=== PATIENT | female | born 1935 | race Caucasian/White ===

== ENCOUNTER 2020-11-01 11:49 | Outpatient (RCR) | payer MEDICARE, OTHER, SELFPAY | END 2020-11-01 23:59 | LOC: IMMUN 11:49 | PROVIDERS: PCP Internal Medicine; Referring Provider Family Medicine; Visit Provider Family Medicine | DX: Z23 Encounter for immunization (principal) | CPT/HCPCS: 0011A; 0012A ==

== ENCOUNTER 2021-11-21 17:05 | Inpatient (IN) | payer MEDICARE, OTHER, SELFPAY ==
[2021-11-21 17:05] VITALS: BP 133/106; PULSE 74; RESP 18; TEMP 35.8; O2SAT 97; BMI 20.5
[2021-11-21 18:39] LABS: Absolute Lymphocyte Count 1.66 X10^3/uL (0.83-4.51); Absolute Neutrophil Count 11.2 X10^3/uL (2.0-7.7); Basophil# 0.06 X10^3/uL; Basophil% 0.4 % (0-1); Eosinophil# 0.02 X10^3/uL; Eosinophils% 0.1 % (0-5); Hematocrit 47.6 % (37-47); Hemoglobin 15.5 g/dL (12.0-15.0); Lymphocyte # 1.66 X10^3/ul (0.83-4.51); Lymphocyte % 11.9 % (19-41); Mean Corp Hgb Conc 32.6 g/dL (32-36); Mean Corpuscular Hgb 27.4 pg (27.0-32.0); Mean Corpuscular Volume 84.2 fL (81-99); Mean Platelet Vol. 11.3 fl (6.2-12.0); Monocyte# 0.97 X10^3/uL; NRBC Flagged by Analyzer 0 % (0-5); Neutrophil # 11.18 X10^3/uL (2.7-7.7); Neutrophil % 80.3 % (47-70); Platelet Count 323 K/mm3 (150-450); RBC Distribution Width SD 45.1 fl (35.1-43.9); Red Blood Count 5.65 M/mm3 (4.2-5.4); White Blood Count 13.9 K/mm3 (4.4-11.0)
[2021-11-21 19:30] LABS: Anion Gap 6 (5-15); BUN 27 mg/dL (7-18); BUN/Creat Ratio 27.7 RATIO (10-20); Calcium,Total 9.9 mg/dL (8.5-10.1); Chloride 95 mmol/L (98-107); Creatinine, Serum 0.97 mg/dL (0.55-1.02); EST Glomerular Filtration Rate 58 mL/min (>60); Est Glom Filt Rate - Afr Amer 70 mL/min (>60); Estimated Creatinine Clearance 35.08 ml/min; Glucose 119 mg/dL (74-106); Potassium 4.6 mmol/L (3.5-5.1); Sodium Level 131 mmol/L (136-145)
[2021-11-21 19:56] LABS: Bacteria 0 SEEN /hpf (None Seen); Red Blood Cells-Urine 0 SEEN /hpf (0-5); Squamous Epithelial Cells - UA 0 SEEN /hpf (5-10)
--- NOTE | 2021-11-21 20:23 | CT_ITS ---
STUDY: CT ABDOMEN AND PELVIS WITH CONTRAST REASON FOR EXAM: Female, 86 years old. abd pain RADIATION DOSAGE (If Supplied By Facility): CTDIvol = ( 11.50 ) mGy, DLP = ( 459.76 ) mGycm TECHNIQUE: Transaxial images were obtained from the dome of the diaphragm to the symphysis pubis without oral contrast. IV 100mL Isovue-300 was administered. Sagittal and coronal images were reconstructed. Individualized dose optimization techniques were used for this CT. COMPARISON: None. FINDINGS: There are chronic interstitial fibrotic changes of the lung bases. Small pericardial effusion is present. A mild amount of abdominal and pelvic ascites is also visualized. Normal liver. Normal gallbladder and extrahepatic biliary system. Normal spleen. Normal pancreas. Normal bilateral adrenal glands. Tiny/small renal cysts are present bilaterally which are benign and do not require an additional imaging. Normal visualized stomach. A 4.20 cm short segment of the proximal ileum in the left mid to lower abdomen demonstrates moderate wall thickening and luminal narrowing, with approximately mildly fluid distended loops of bowel consistent with obstruction, proximal to the zone of transition. The distal half of the ileum up to the ileocolic junction is normal. Mild edema is present throughout the mucosa of the proximal jejunum. Fluid and gaseous distended bowel loops originate in the middle one third jejunal region and continues to the zone of transition in the left mid abdomen. There are multiple colonic diverticula consistent with diverticulosis. Moderate to significant fecal retention noted throughout the colon. Mucosal hyperenhancement is seen in the ascending colon likely due to inflammation. 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 Several additional areas of atherosclerotic calcification and stenosis are present in some of the smaller branches of the SMA near the C-loop of the duodenum. There is non-visualization of the appendix. There is diffuse atherosclerotic calcification of the abdominal aorta, without a demonstrated aneurysm. Normal inferior vena cava. Normal retroperitoneum. Normal urinary bladder. There is absence of the uterus consistent with a prior hysterectomy. Normal abdominal wall. There are diffuse degenerative changes of the visualized lumbar spine. IMPRESSION: Small bowel obstruction 1. A 4.20 cm short segment of the proximal ileum in the left mid to lower abdomen demonstrates moderate wall thickening and luminal narrowing, with approximately mildly fluid distended loops of bowel consistent with obstruction, proximal to the zone of transition. The distal half of the ileum up to the ileocolic junction is normal. Mild edema is present throughout the mucosa of the proximal jejunum. Fluid and gaseous distended bowel loops originate in the middle one third jejunal region and continues to the zone of transition in the left mid abdomen. 2. There are multiple colonic diverticula consistent with diverticulosis. Moderate to significant fecal retention noted throughout the colon. 3. Mucosal hyperenhancement is seen in the ascending colon likely due to inflammation. 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 Several additional areas of atherosclerotic calcification and stenosis are present in some of the smaller branches of the SMA near the C-loop of the duodenum Electronically Signed: Pradip Sanchez MD at 21:42 EST , CT/Abdomen/Pelvis W IV Cont ONLY
--- NOTE | 2021-11-21 20:23 | EKG12_ITS ---
Test Reason : ABD PAIN Blood Pressure : / mmHG Vent. Rate : 084 BPM Atrial Rate : 082 BPM P-R Int : 000 ms QRS Dur : 100 ms QT Int : 394 ms P-R-T Axes : 000 -41 088 degrees QTc Int : 465 ms Atrial fibrillation Left axis deviation Voltage criteria for left ventricular hypertrophy Abnormal ECG Confirmed by DARYL ROSENBERG, HASMUKH ([id number]), fan mail editor LEVON AMAYA ([id number]) on 11/24/2021 12:11:57 PM Referred By: PL Confirmed By:HASMUKH BRITO MD
--- NOTE | 2021-11-21 20:24 | EX.ED.DYSGE1 ---
HPI History of Present Illness Chief Complaint: Abd Pain Informant: patient Narrative Narrative: Patient presents with nausea vomiting abdominal pain. She states the symptoms started yesterday morning. She vomited about 7 times yesterday. It was darker brown but not black. She states that did not look as dark as coffee grounds. She vomited once today and then had dry heaves once. When she did vomit today was clear. She has not seen any blood in the stool. Last bowel movement was about 2 days ago but that is not uncommon for her. She had some pain in the right lower quadrant and her abdomen seem to be very bloated but both of those are getting better. It is still present but much better. She states when she saw her physician this afternoon she was having more pain but it seems to have gotten progressively better. Only abdominal surgery is abdominal hysterectomy in approximately 1986. Nothing seems to make the symptoms specifically better or worse other than time. [facility] Medical History Abdominal pain Hyperlipidemia Hypertension Home Medications apixaban [Eliquis] 2.5 mg PO DAILY 11/21/21 [History Last Taken Unknown] atorvastatin 20 mg PO DAILY 11/21/21 [History Last Taken Unknown] potassium chloride 10 meq PO DAILY 11/21/21 [History Last Taken Unknown] Allergy/AdvReac Type Severity Reaction Status Date / Time No Known Allergies Allergy Verified 11/21/21 17:07 Surgical History History of hysterectomy Hx of shoulder surgery Social History Smoking Status: Never smoker ROS ROS ED Constitutional Constitutional ED: Reports chills and subjective Eyes Eyes: Denies blurry vision ENT ENT ED: Denies rhinorrhea or sore throat Cardiovascular Cardiovascular: Denies chest pain or palpitations Respiratory/Chest Respiratory/Chest: Denies cough or dyspnea Gastrointestinal Gastrointestinal: Reports abdominal pain, nausea and vomiting; Denies constipation, diarrhea or melena Genitourinary Genitourinary ED: Denies dysuria Musculoskeletal Musculoskeletal: Denies arthralgias or myalgias Integumentary Denies rash Neurologic Neurologic: Denies headache(s) Endocrine Endocrinology: Denies polydipsia or polyuria Allergic/Immunologic Allergic/Immunologic ED: Denies mouth swelling or urticaria EXAM Physical Exam Const Vital Signs: 11/21/21 17:05 11/21/21 21:56 Temperature 96.5 F L 97.9 F Temperature Source Rectal Temporal Pulse Rate 74 79 Respiratory Rate 18 16 Blood Pressure 133/106 H 124/69 H Blood Pressure Mean 115 87 Pulse Ox 97 98 Oxygen Delivery Method Room Air Room Air Positive well nourished and well developed General Appearance ED: well developed and NAD HEENT Reports dry mucous membranes Mouth ED: Yes dry mucous membranes Mouth: dry mucous membranes Eyes General Eye ED: Negative for pale conjunctiva or scleral icterus Neck no JVD Chest Wall inspection of chest normal Resp normal respiratory effort and clear to auscultation bilaterally Effort and Inspection: Negative for pain with movement Auscultation: Negative for rales or rhonchi Cardio regular rate and no murmurs Rhythm: abnormal rhythm GI normal to inspection, nondistended, normoactive bowel sounds GI Narrative: Abdomen is soft. It is non to minimally distended. There is minimal if any tenderness right lower quadrant but no rebound or guarding. Palpation: soft Back/Spine no CVA tenderness Extremity normal to inspection General Extremety ED: Negative for tenderness Neuro oriented x3 Sensorium / Orientation: alert Psych mental status grossly normal Skin no rashes or lesions noted and no wounds MDM MDM MDM Narrative Medical decision making narrative: Patient does have slight white count 13.9. Hemoglobin is up a bit but that might be also due to dehydration. Electrolytes show minimal decrease of sodium. BUN to creatinine ratio is high consistent with some dehydration and she is given IV fluids. LFTs show no marked abnormalities. Her nausea is better with Zofran. Urine showed 5-10 white cells but no nitrites. I will send a culture but do not think this is likely the source of her symptoms. Her CT showed thickened area near the ileum. There is a small lumen. There appears to be proximal small bowel distention. 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 I discussed case with the hospitalist. I also then called Dr. Joshi on for surgery. We agreed the patient should come in. By her history her symptoms seem to be improving. However she still has some nausea distention and discomfort even though it is improving. With that in the CT findings she really should not go home. She does not need surgery at this time. She may need consultation with surgery and/or GI. Since the patient's nausea is controlled with Zofran, I will not place an NG at this time. Lab Data Attestation: I reviewed the patient's lab results. Labs: Laboratory Results - last 24 hr 11/21/21 11/21/21 11/21/21 18:30 18:30 18:30 WBC 13.9 H RBC 5.65 H Hgb 15.5 H Hct 47.6 H MCV 84.2 MCH 27.4 MCHC 32.6 RDW Std Deviation 45.1 H RDW Coeff of Darren 15.0 H Plt Count 323 MPV 11.3 Immature Gran % (Auto) 0.300 Neut % (Auto) 80.3 H Lymph % (Auto) 11.9 L [place] % (Auto) 7.0 Eos % (Auto) 0.1 Baso % (Auto) 0.4 Absolute Neuts (auto) 11.2 H Absolute Lymphs (auto) 1.66 Nucleated RBC % 0 Sodium 131 L Potassium 4.6 Chloride 95 L Carbon Dioxide 30.0 Anion Gap 6 BUN 27 H Creatinine 0.97 Estim Creat Clear Calc 35.08 Est GFR (MDRD) Af Amer 70 Est GFR (MDRD) Non-Af 58 L BUN/Creatinine Ratio 27.7 H Glucose 119 H Calcium 9.9 Total Bilirubin 1.00 Direct Bilirubin 0.14 AST 52 H ALT 22 Alkaline Phosphatase 97 Total Protein 7.9 Albumin 3.7 Globulin 4.2 Lipase 33 L Urine Color Urine Clarity Urine pH Ur Specific [place] Urine Protein Urine Glucose (UA) Urine Ketones Urine Occult Blood Urine Nitrite Urine Bilirubin Urine Urobilinogen Ur Leukocyte Esterase Urine RBC Urine WBC Ur Squamous Epith Cells Urine Bacteria Hyaline Casts Urine Mucus 11/21/21 19:50 WBC RBC Hgb Hct MCV MCH MCHC RDW Std Deviation RDW Coeff of Darren Plt Count MPV Immature Gran % (Auto) Neut % (Auto) Lymph % (Auto) [place] % (Auto) Eos % (Auto) Baso % (Auto) Absolute Neuts (auto) Absolute Lymphs (auto) Nucleated RBC % Sodium Potassium Chloride Carbon Dioxide Anion Gap BUN Creatinine Estim Creat Clear Calc Est GFR (MDRD) Af Amer Est GFR (MDRD) Non-Af BUN/Creatinine Ratio Glucose Calcium Total Bilirubin Direct Bilirubin AST ALT Alkaline Phosphatase Total Protein Albumin Globulin Lipase Urine Color Yellow Urine Clarity Clear Urine pH 6.0 Ur Specific [place] 1.020 Urine Protein 30 H Urine Glucose (UA) Normal Urine Ketones 15 H Urine Occult Blood Negative Urine Nitrite Negative Urine Bilirubin Negative Urine Urobilinogen Normal Ur Leukocyte Esterase 100 H Urine RBC 0 SEEN Urine WBC 5-10 SEEN Ur Squamous Epith Cells 0 SEEN Urine Bacteria 0 SEEN Hyaline Casts 0-5 SEEN Urine Mucus 1+ Radiography Diagnostic Testing: Clinical Impression(s) from Imaging Studies Abdomen/Pelvis CT 11/21/21 20:23 EKG Initial EKG: Comments: EKG done for elderly with abdominal pain read by me shows atrial fibrillation with a rate of 84. No ventricular ectopy. No acute ST elevation or depression. QRS duration and QTc normal. Discharge Plan Dx/Rx/DC Orders Clinical Impression: Small bowel obstruction, Nausea & vomiting Disposition Disposition: Acute Care Hospital [facility]
[2021-11-21 20:26] LABS: Color, Urine Yellow (Yellow); Glucose, Dipstick Normal (Normal); Ketone-Dipstick 15 mg/dl (Negative); Leukocyte Esterase-Dipstick 100 /ul (Negative); Nitrite-Dipstick Negative (Negative); Occult Blood-Urine Negative /ul (Negative); Protein-Dipstick 30 mg/dl (Negative); Urine Bilirubin Dipstick Negative (Negative); Urine Clarity Clear (Clear); Urine Urobilinogen Normal (Normal)
[2021-11-21] MEDS: Ondansetron 4 MG/2 ML Vial IV (20:27)
[2021-11-21] MEDS: 0.9% Normal Saline 1,000 ML 1000 ML IV (20:28)
[2021-11-21 20:52] LABS: Mucous, Urine 1+ /hpf (<or=2+); White Blood Cells 5-10 SEEN /hpf (0-5)
[2021-11-21 20:53] LABS: Hyaline Cast 0-5 SEEN /lpf (0-5)
[2021-11-21 21:09] LABS: AST(SGOT) 52 U/L (15-37); Alanine Aminotransfer ALT/SGPT 22 U/L (13-56); Albumin, Serum 3.7 g/dL (3.2-5.0); Alkaline Phosphatase 97 U/L (45-117); Bilirubin, Direct 0.14 mg/dL (0.00-0.30); Globulin 4.2 g/dL (2.2-4.2); Lipase 33 U/L (73-393); Protein, Total 7.9 g/dL (6.4-8.2)
[2021-11-21 21:56] VITALS: BP 124/69; PULSE 79; RESP 16; TEMP 36.6; O2SAT 98
--- NOTE | 2021-11-21 22:38 | PCM.HP.STD ---
HPI - General General Date of Admission: 11/21/21 HPI Narrative ALEXANDER CHIN, is a 86 F with a significant history of former smoker; and atrial fibrillation who presents to the emergency department with right upper quadrant pain that started 2 days before presentation. The pain radiated to her mid abdomen. The pain was severe. She described the pain as sharp. There was no ameliorating or aggravating factor to the pain. Then she developed nausea and vomiting. Initially her vomitus was dark brown. Later on her vomitus was clear. She reports sitophobia. On the day of presentation she went to see her PCP who referred her to the ED. Her pain has improved. Last time she vomited was several hours before presentation. Last time her bowels moved was a day before presentation [facility] Medical History Abdominal pain Hyperlipidemia Hypertension Home Medications apixaban [Eliquis] 2.5 mg PO DAILY 11/21/21 [History Last Taken 11/19/21] atorvastatin 20 mg PO QHS 11/21/21 [History Last Taken 11/19/21] hydrochlorothiazide 12.5 mg PO DAILY 11/21/21 [History Last Taken 11/21/21] metoprolol tartrate 12.5 mg PO DAILY 11/21/21 [History Last Taken 11/21/21] potassium chloride 10 meq PO DAILY 11/21/21 [History Last Taken 11/19/21] Allergy/AdvReac Type Severity Reaction Status Date / Time amoxicillin Allergy Hives Verified 11/21/21 23:35 codeine Allergy Hives Verified 11/21/21 23:35 duloxetine [From Cymbalta] Allergy Hives Verified 11/21/21 23:35 pramipexole Allergy Hives Verified 11/21/21 23:35 Family History Other Breast cancer Cancer Surgical History History of hysterectomy Hx of shoulder surgery Social History Smoking Status: Never smoker ROS ROS Narrative Constitutional: Denies fever, chills, fatigue, anorexia and change in weight Eyes: Denies blurry vision, change in eye color, change in vision, discharge from eye(s), double vision, erythema, eye pain, loss of vision or other HEENT: Denies abnormal hearing, dysphagia, ear pain, epistaxis, headache(s), hearing loss, nasal congestion, nasal discharge, post nasal drip, sinus pressure, sore throat or other Cardiovascular: Denies chest pain or palpitations. Denies dyspnea on exertion, orthopnea and paroxysmal nocturnal dyspnea Respiratory/Chest: Denies cough, excessive phlegm production, shortness of breath with exertion and wheezing Gastrointestinal: Reports abdominal pain, nausea and vomiting. Denies hematemesis or hematochezia. Genitourinary: Denies burning urination, difficulty urinating, dysuria, hematuria, nocturia, urinary frequency, urinary hesitancy, urinary incontinence, urinary urgency or other Musculoskeletal: Denies arthralgias, back pain, joint pain, joint stiffness, joint swelling, myalgias, neck pain or other Neurologic: Denies abnormal gait, abnormal speech, confusion, disequilibrium, dizziness, focal weakness, headache(s), numbness, paresthesias, seizure-like activity, seizures, syncope, tingling, tremor(s) or other Psychiatric: Denies anxiety, depression, homicidal ideation, suicidal ideation or other Endocrinology: Denies change in body appearance, cold intolerance, excessive sweating, heat intolerance, polydipsia, polyuria or other Hematologic/Lymphatic: Denies anemia, easy bleeding, easy bruising, lymphadenopathy or other Integumentary: Denies rashes Allergic/Immunologic: Denies rhinitis, hives, eczema, asthma or other Vital Signs Vital Signs Vital Signs: 11/21/21 17:05 11/21/21 21:56 Temperature 96.5 F L 97.9 F Temperature Source Rectal Temporal Pulse Rate 74 79 Respiratory Rate 18 16 Blood Pressure 133/106 H 124/69 H Blood Pressure Mean 115 87 Pulse Ox 97 98 Oxygen Delivery Method Room Air Room Air Weight Weight: 52.617 kg Body Mass Index (BMI) 20.5 Physical Exam Narrative Physical exam: General: Well-nourished, well-developed. Head: Normocephalic, atraumatic, no tenderness Eyes: PERRLA, EOMI ENT, no trauma, moist mucous membranes, no rhinorrhea Neck: Nontender, full range of motion, no spinal tenderness, deformities, step-off CVS: Regular rate and rhythm. S1-S2 present. No murmur, gallop or rub. Respiratory : clear to auscultation bilaterally, chest wall nontender, no wheezing Abdomen: Soft, nontender, nondistended, normal bowel sounds, no masses : Deferred Back: Nontender, no CVA tenderness, no midline spinal tenderness, deformities, step-offs Extremities: Nontender full range of motion, no trauma Skin: Normal color, no trauma, abrasions Neuro: Alert, oriented, cranial nerves II through XII grossly intact. Psychiatry: Normal mood. Normal affect. Not depressed. Not anxious. Results Lab / Micro Data Result Diagrams: 11/21/21 18:30 11/21/21 18:30 Labs: Laboratory Results - last 24 hr 11/21/21 18:30: WBC 13.9 H, RBC 5.65 H, Hgb 15.5 H, Hct 47.6 H, MCV 84.2, MCH 27.4, MCHC 32.6, RDW Std Deviation 45.1 H, RDW Coeff of Darren 15.0 H, Plt Count 323, MPV 11.3, Immature Gran % (Auto) 0.300, Neut % (Auto) 80.3 H, Lymph % (Auto) 11.9 L, [place] % (Auto) 7.0, Eos % (Auto) 0.1, Baso % (Auto) 0.4, Absolute Neuts (auto) 11.2 H, Absolute Lymphs (auto) 1.66, Nucleated RBC % 0 11/21/21 18:30: Sodium 131 L, Potassium 4.6, Chloride 95 L, Carbon Dioxide 30.0, Anion Gap 6, BUN 27 H, Creatinine 0.97, Estim Creat Clear Calc 35.08, Est GFR (MDRD) Af Amer 70, Est GFR (MDRD) Non-Af 58 L, BUN/Creatinine Ratio 27.7 H, Glucose 119 H, Calcium 9.9 11/21/21 18:30: Total Bilirubin 1.00, Direct Bilirubin 0.14, AST 52 H, ALT 22, Alkaline Phosphatase 97, Total Protein 7.9, Albumin 3.7, Globulin 4.2, Lipase 33 L 11/21/21 19:50: Urine Color Yellow, Urine Clarity Clear, Urine pH 6.0, Ur Specific [place] 1.020, Urine Protein 30 H, Urine Glucose (UA) Normal, Urine Ketones 15 H, Urine Occult Blood Negative, Urine Nitrite Negative, Urine Bilirubin Negative, Urine Urobilinogen Normal, Ur Leukocyte Esterase 100 H, Urine RBC 0 SEEN, Urine WBC 5-10 SEEN, Ur Squamous Epith Cells 0 SEEN, Urine Bacteria 0 SEEN, Hyaline Casts 0-5 SEEN, Urine Mucus 1+ Radiology Impression Abdomen/Pelvis CT 11/21/21 20:23 Assessment & Plan Assessment/Plan (1) Small bowel obstruction: (2) Nausea & vomiting: QUALIFIERS: Vomiting type: unspecified Qualified Code(s): R11.2 - Nausea with vomiting, unspecified (3) Afib: QUALIFIERS: Atrial fibrillation type: persistent (not longstanding) Qualified Code(s): I48.19 - Other persistent atrial fibrillation PLAN: Small bowel obstruction Abdomen and pelvis CT was visualized and independently interpreted and I agree radiologist impression of distended loops of bowel and luminal narrowing. We will keep patient n.p.o. Supportive treatment with IV fluids, antiemetics and as needed morphine for pain. Emergent department doctor discussed the case with general surgery. General surgery consult. Leukocytosis Review of ED labs showed white count of 13.9. Likely reactive. Trend. Hyponatremia Review of labs showed sodium of 131. Gentle IV hydration ordered. Trend BMP. Atrial fibrillation Patient with a history of atrial fibrillation. Will place on telemetry. Hold Eliquis. On home metoprolol p.o. Change metoprolol p.o. to IV. Hypertension Blood pressure is not within goal Patient is n.p.o. Hold hydrochlorothiazide. Change metoprolol p.o. to IV. Trend blood pressure and adjust blood pressure medications. DVT prophylaxis: SCD ordered Charges/Coding Visit Charges Inpatient E&M: 26093 Init Hosp L3
[2021-11-21 23:00] VITALS: BP 122/82; PULSE 92; RESP 16; TEMP 36.7; O2SAT 95
[2021-11-21 23:16] LABS: Lactic Acid 0.6 mmol/L (0.4-1.9)
[2021-11-21 23:22] VITALS: BMI 20.6
[2021-11-21 23:26] VITALS: BP 139/98; PULSE 99; RESP 16; TEMP 36.6; O2SAT 99
[2021-11-21] MEDS: 0.9% Normal Saline 1,000 ML 75 ML IV (23:43)
[2021-11-22] VITALS (11 sets, daily range): BP systolic 98–136; BP diastolic 61–81; PULSE 74–102; RESP 16–18; TEMP 36.6–36.9; O2SAT 94–98
[2021-11-22] MEDS: Metoprolol Tartrate 5 MG/5 ML Vial IV ×2 (00:03→05:37)
[2021-11-22 05:33] LABS: Absolute Lymphocyte Count 2.14 X10^3/uL (0.83-4.51); Absolute Neutrophil Count 4.6 X10^3/uL (2.0-7.7); Basophil# 0.08 X10^3/uL; Eosinophil# 0.13 X10^3/uL; Eosinophils% 1.7 % (0-5); Hematocrit 37.6 % (37-47); Hemoglobin 12.5 g/dL (12.0-15.0); Lymphocyte # 2.14 X10^3/ul (0.83-4.51); Lymphocyte % 27.7 % (19-41); Mean Corp Hgb Conc 33.2 g/dL (32-36); Mean Corpuscular Hgb 27.7 pg (27.0-32.0); Mean Corpuscular Volume 83.4 fL (81-99); Mean Platelet Vol. 10.9 fl (6.2-12.0); Monocyte# 0.76 X10^3/uL; Monocyte% 9.8 % (0-10); NRBC Flagged by Analyzer 0 % (0-5); Neutrophil # 4.59 X10^3/uL (2.7-7.7); Neutrophil % 59.5 % (47-70); Platelet Count 230 K/mm3 (150-450); RBC Distribution Width CV 14.8 % (11.6-14.6); Red Blood Count 4.51 M/mm3 (4.2-5.4); White Blood Count 7.7 K/mm3 (4.4-11.0)
[2021-11-22 06:30] LABS: Anion Gap 4 (5-15); BUN 24 mg/dL (7-18); BUN/Creat Ratio 40.5 RATIO (10-20); Chloride 100 mmol/L (98-107); Creatinine, Serum 0.59 mg/dL (0.55-1.02); EST Glomerular Filtration Rate 103 mL/min (>60); Est Glom Filt Rate - Afr Amer 124 mL/min (>60); Estimated Creatinine Clearance 34.02 ml/min; Glucose 87 mg/dL (74-106); Potassium 3.3 mmol/L (3.5-5.1); Sodium Level 136 mmol/L (136-145)
[2021-11-22 07:50] LABS: Magnesium 2.2 mg/dL (1.6-2.6); Phosphorus 3.2 mg/dL (2.5-4.9)
--- NOTE | 2021-11-22 08:25 | PN.HOSP_ITS ---
Subjective Subjective Admitted with abdominal pain nausea and vomiting. Initially vomiting was dark brown later on it became clear. Last BM 2 days ago but that is not unusual for her. History of abdominal hysterectomy in 1986. Objective Data Objective Data Vital Signs: Vital Signs Temp Pulse Resp BP Pulse Ox 98.4 F 74 16 119/77 97 11/22/21 05:26 11/22/21 05:37 11/22/21 05:26 11/22/21 05:26 11/22/21 05:26 Oxygen Delivery Method Room Air Weight: 116 lb 6.465 oz Body Mass Index (BMI) 20.6 Intake & Output: Intake and Output for Last 24 Hours 11/20/21 11/21/21 11/22/21 23:59 23:59 23:59 Intake Total 1000 / 1000 Output Total 300 / 300 Balance 1000 / 1000 -300 / -300 Lab / Micro Data Result Diagrams: 11/22/21 05:18 11/22/21 05:18 Labs: Laboratory Results - last 24 hr 11/21/21 18:30: WBC 13.9 H, RBC 5.65 H, Hgb 15.5 H, Hct 47.6 H, MCV 84.2, MCH 27.4, MCHC 32.6, RDW Std Deviation 45.1 H, RDW Coeff of Darren 15.0 H, Plt Count 323, MPV 11.3, Immature Gran % (Auto) 0.300, Neut % (Auto) 80.3 H, Lymph % (Auto) 11.9 L, Terrell % (Auto) 7.0, Eos % (Auto) 0.1, Baso % (Auto) 0.4, Absolute Neuts (auto) 11.2 H, Absolute Lymphs (auto) 1.66, Nucleated RBC % 0 11/21/21 18:30: Sodium 131 L, Potassium 4.6, Chloride 95 L, Carbon Dioxide 30.0, Anion Gap 6, BUN 27 H, Creatinine 0.97, Estim Creat Clear Calc 35.08, Est GFR (MDRD) Af Amer 70, Est GFR (MDRD) Non-Af 58 L, BUN/Creatinine Ratio 27.7 H, Glucose 119 H, Calcium 9.9 11/21/21 18:30: Total Bilirubin 1.00, Direct Bilirubin 0.14, AST 52 H, ALT 22, Alkaline Phosphatase 97, Total Protein 7.9, Albumin 3.7, Globulin 4.2, Lipase 33 L 11/21/21 19:50: Urine Color Yellow, Urine Clarity Clear, Urine pH 6.0, Ur Specific [place] 1.020, Urine Protein 30 H, Urine Glucose (UA) Normal, Urine Ketones 15 H, Urine Occult Blood Negative, Urine Nitrite Negative, Urine Bilirubin Negative, Urine Urobilinogen Normal, Ur Leukocyte Esterase 100 H, Urine RBC 0 SEEN, Urine WBC 5-10 SEEN, Ur Squamous Epith Cells 0 SEEN, Urine Bacteria 0 SEEN, Hyaline Casts 0-5 SEEN, Urine Mucus 1+ 11/21/21 22:31: Lactic Acid 0.6 11/22/21 05:18: WBC 7.7, RBC 4.51, Hgb 12.5, Hct 37.6, MCV 83.4, MCH 27.7, MCHC 33.2, RDW Std Deviation 45.0 H, RDW Coeff of Darren 14.8 H, Plt Count 230, MPV 10.9, Immature Gran % (Auto) 0.300, Neut % (Auto) 59.5, Lymph % (Auto) 27.7, Terrell % (Auto) 9.8, Eos % (Auto) 1.7, Baso % (Auto) 1.0, Absolute Neuts (auto) 4.6, Absolute Lymphs (auto) 2.14, Nucleated RBC % 0 11/22/21 05:18: Sodium 136, Potassium 3.3 L, Chloride 100, Carbon Dioxide 32.0, Anion Gap 4 L, BUN 24 H, Creatinine 0.59, Estim Creat Clear Calc 34.02, Est GFR (MDRD) Af Amer 124, Est GFR (MDRD) Non-Af 103, BUN/Creatinine Ratio 40.5 H, Glucose 87, Calcium 8.0 L Radiography Diagnostic Testing: Radiology Impression Abdomen/Pelvis CT 11/21/21 20:23 Physical Exam Narrative Currently patient abdominal pain has resolved. No nausea or vomiting. Patient passing flatus but no bowel movement. Patient has history of A. fib for many years. Sometimes her heart rate gets very slow General: Alert, Oriented x3, Cooperative HEENT: Bilateral hard of hearing atraumatic, PERRLA, EOMI, Normocephalic Oral: No Gingival or Mucosal Lesions/ Ulcerations Neck: Supple, No JVD, Negative Carotid Bruits Lungs: Air entry diminished in bilateral lung bases. No crepitation/rhonchi Cardiovascular: A. fib at 76 bpm, Normal S1, Normal S2, status post MVR. Systolic murmur over cardiac apex, low pitch murmur. Abdomen: Soft, mild tenderness on deep palpation on left upper quadrant and left lumbar region. Bowel sounds very sluggish. No palpable mass. No distention : No renal angle tenderness. No suprapubic tenderness. Extremities: No edema, Capillary Refill Less than 3 Seconds Skin: No rashes, No breakdown Musculoskeletal: No Tenderness to Palpation of Joints or Extremities Neurological: Cranial nerves II-XII grossly intact, DTR 2+/4 and Symmetrical, Neuro grossly intact Psych/Mental Status: Normal Affect, Appropriate. Assessment & Plan Assessment/Plan (1) Small bowel obstruction: (2) Nausea & vomiting: QUALIFIERS: Vomiting type: unspecified Qualified Code(s): R11.2 - Nausea with vomiting, unspecified (3) Afib: QUALIFIERS: Atrial fibrillation type: persistent (not longstanding) Qualified Code(s): I48.19 - Other persistent atrial fibrillation PLAN: This 86-year-old female with history of chronic A. fib on Eliquis admitted with abdominal pain 2 days prior to admission. Abdominal pain started on RUQ with radiation to mid abdomen, severe, sharp, 8-10/10 intensity, associated with nausea and vomiting. 1. Small bowel obstruction mainly over left side possible enteritis: CT abdomen pelvis with IV contrast without oral contrast reviewed independently and with the surgeon. The distended loops of bowel mainly jejunum with diffuse wall thickening. Suspicion of enteritis. If patient makes a stool, will send for enteric bacteriology panel, leukocytes and occult blood. It also shows feces in colon with diverticulosis. We will keep the patient n.p.o until she makes bowel movement. Senna S, 2 tablet twice daily. Discussed with Dr. Joshi. Continue IV fluid Ringer lactate. On conservative management. Leukocytosis Review of ED labs showed white count of 13.9. Likely reactive. Repeat CBC monitoring shows resolution. Hypotonic hypovolemic hyponatremia, partly contributed from HCTZ: Mild hypokalemia. Labs monitoring shows improvement in serum sodium. IV KCl getting replaced. 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 Her turfgrass technician referred for EP evaluation to evaluate for ablation/pacemaker. Eliquis on hold. On IV metoprolol Hypertension: Blood pressure is normal. Hold HCTZ. Monitor BP. DVT prophylaxis: SCD ordered Charges/Coding Visit Charges Inpatient E&M: 96949 Subs Hosp L2
[2021-11-22] MEDS: Potassium Chloride 10mEq/100mL 10 MEQ/100 ML IV.SOLN. 100 MEQ IV BOLUS (08:33)
--- NOTE | 2021-11-22 09:41 | EX.PCM.CON.S ---
Assessment & Plan Assessment/Plan (1) Small bowel obstruction: (2) Nausea & vomiting: QUALIFIERS: Vomiting type: unspecified Qualified Code(s): R11.2 - Nausea with vomiting, unspecified PLAN: At this point I think the patient is starting to improve. CAT scan looks like there was a lot of enteritis going on. If she can tolerate a diet and have a bowel movement I believe she probably can be DC'd home and I will follow her back up in the office. HPI Consult Data Date of Consult: 11/22/21 HPI Narrative HPI Narrative: ALEXANDER CHIN, is a 86 F with a significant history of former smoker; and atrial fibrillation who presents to the emergency department with right upper quadrant pain that started 2 days before presentation. The pain radiated to her mid abdomen. The pain was severe. She described the pain as sharp. There was no ameliorating or aggravating factor to the pain. Then she developed nausea and vomiting. Initially her vomitus was dark brown. Later on her vomitus was clear. She reports sitophobia. On the day of presentation she went to see her PCP who referred her to the ED. Her pain has improved. Last time she vomited was several hours before presentation. Last time her bowels moved was a day before presentation [facility] Medical History Abdominal pain Hyperlipidemia Hypertension Home Medications apixaban [Eliquis] 2.5 mg PO DAILY 11/21/21 [History Last Taken 11/19/21] atorvastatin 20 mg PO QHS 11/21/21 [History Last Taken 11/19/21] hydrochlorothiazide 12.5 mg PO DAILY 11/21/21 [History Last Taken 11/21/21] metoprolol tartrate 12.5 mg PO DAILY 11/21/21 [History Last Taken 11/21/21] potassium chloride 10 meq PO DAILY 11/21/21 [History Last Taken 11/19/21] Allergy/AdvReac Type Severity Reaction Status Date / Time amoxicillin Allergy Hives Verified 11/21/21 23:35 codeine Allergy Hives Verified 11/21/21 23:35 duloxetine [From Cymbalta] Allergy Hives Verified 11/21/21 23:35 pramipexole Allergy Hives Verified 11/21/21 23:35 Family History Other Breast cancer Cancer Surgical History History of hysterectomy Hx of shoulder surgery Social History Smoking Status: Never smoker ROS Constitutional Constitutional: Denies chills, fatigue or fever(s) Cardiovascular Cardiovascular: Denies chest pain Respiratory/Chest Respiratory/Chest: Denies cough Gastrointestinal Gastrointestinal: Reports bloating; Denies abdominal pain Physical Exam Const alert, oriented x3 and no apparent distress General Appearance: cooperative HEENT normocephalic and head/scalp atraumatic Eyes PERRL and EOMs intact bilaterally Resp clear to auscultation bilaterally Cardio Rate: regular rate Rhythm: regular rhythm GI soft to palpation, non-tender and non-distended Lab / Micro Data Result Diagrams: 11/22/21 05:18 11/22/21 05:18 Labs: Laboratory Results - last 24 hr 11/21/21 18:30: WBC 13.9 H, RBC 5.65 H, Hgb 15.5 H, Hct 47.6 H, MCV 84.2, MCH 27.4, MCHC 32.6, RDW Std Deviation 45.1 H, RDW Coeff of Darren 15.0 H, Plt Count 323, MPV 11.3, Immature Gran % (Auto) 0.300, Neut % (Auto) 80.3 H, Lymph % (Auto) 11.9 L, [place] % (Auto) 7.0, Eos % (Auto) 0.1, Baso % (Auto) 0.4, Absolute Neuts (auto) 11.2 H, Absolute Lymphs (auto) 1.66, Nucleated RBC % 0 11/21/21 18:30: Sodium 131 L, Potassium 4.6, Chloride 95 L, Carbon Dioxide 30.0, Anion Gap 6, BUN 27 H, Creatinine 0.97, Estim Creat Clear Calc 35.08, Est GFR (MDRD) Af Amer 70, Est GFR (MDRD) Non-Af 58 L, BUN/Creatinine Ratio 27.7 H, Glucose 119 H, Calcium 9.9 11/21/21 18:30: Total Bilirubin 1.00, Direct Bilirubin 0.14, AST 52 H, ALT 22, Alkaline Phosphatase 97, Total Protein 7.9, Albumin 3.7, Globulin 4.2, Lipase 33 L 11/21/21 19:50: Urine Color Yellow, Urine Clarity Clear, Urine pH 6.0, Ur Specific [place] 1.020, Urine Protein 30 H, Urine Glucose (UA) Normal, Urine Ketones 15 H, Urine Occult Blood Negative, Urine Nitrite Negative, Urine Bilirubin Negative, Urine Urobilinogen Normal, Ur Leukocyte Esterase 100 H, Urine RBC 0 SEEN, Urine WBC 5-10 SEEN, Ur Squamous Epith Cells 0 SEEN, Urine Bacteria 0 SEEN, Hyaline Casts 0-5 SEEN, Urine Mucus 1+ 11/21/21 22:31: Lactic Acid 0.6 11/22/21 05:18: WBC 7.7, RBC 4.51, Hgb 12.5, Hct 37.6, MCV 83.4, MCH 27.7, MCHC 33.2, RDW Std Deviation 45.0 H, RDW Coeff of Darren 14.8 H, Plt Count 230, MPV 10.9, Immature Gran % (Auto) 0.300, Neut % (Auto) 59.5, Lymph % (Auto) 27.7, [place] % (Auto) 9.8, Eos % (Auto) 1.7, Baso % (Auto) 1.0, Absolute Neuts (auto) 4.6, Absolute Lymphs (auto) 2.14, Nucleated RBC % 0 11/22/21 05:18: Sodium 136, Potassium 3.3 L, Chloride 100, Carbon Dioxide 32.0, Anion Gap 4 L, BUN 24 H, Creatinine 0.59, Estim Creat Clear Calc 34.02, Est GFR (MDRD) Af Amer 124, Est GFR (MDRD) Non-Af 103, BUN/Creatinine Ratio 40.5 H, Glucose 87, Calcium 8.0 L 11/22/21 05:18: Phosphorus 3.2, Magnesium 2.2 Radiology Impression Abdomen/Pelvis CT 11/21/21 20:23
[2021-11-22] MEDS: Lactated Ringers 1,000 ML 75 ML IV ×2 (09:53→21:42)
[2021-11-22] MEDS: Senna Tablet 2 TABLET PO ×2 (12:46→21:41)
--- NOTE | 2021-11-22 16:00 | CASEMGMT ---
RN TERRANCE WATCH CRYSTAL GRINDER CM to room to meet with patient for initial transition planning/care coordination assessment. HUGO CARLOS introduced self and role at [facility]. Pt voices understanding and consents to assessment at this time. Pt sitting in recliner chair in no distress at this time. Pt is A/O at this time and answers all questions appropriately. Care providers, pharmacy, and demographics verified/updated at this time. PCP: Dr Jacobo Specialists: Dr Cabrera--cardiology @ [facility] Preferred Pharmacy: [facility] Insurance: [employer] Prescription Benefit: Yes Living Will/HPOA: Has both. GrandRudolph palm, is HPOA LNOK: Rudolph Villatoro/POA. , Tito--has dementia and pt takes care of him Living Arrangements: Lives w/her , Tito, in one-story home w/ramp entrance. Pt is independent w/ADL's and IADL's and is primary caregiver of who has dementia. Rudolph Villatoro, and Tito's sister, Megan, is taking care of pt's while pt is in the hospital. Transportation: Pt states drives self and states no transportation concerns at this time. DME: Denies using any DME and denies needs. HHC/SNF: No hx of either. No needs identified. Pt wishes to return home and states has no concerns with going home at time of discharge. Pt voices no concerns/needs at this time. Advised pt to ask for CM if any questions/concerns/needs arise. Voices understanding. PLAN: Home w/discharge plans in place. Chasidy LEY RN, CM
[2021-11-23] VITALS (14 sets, daily range): BP systolic 94–147; BP diastolic 52–94; PULSE 53–96; RESP 16–18; TEMP 36.6–36.9; O2SAT 95–100
[2021-11-23 05:11] LABS: Absolute Neutrophil Count 3.9 X10^3/uL (2.0-7.7); Basophil# 0.11 X10^3/uL; Basophil% 1.7 % (0-1); Eosinophil# 0.24 X10^3/uL; Eosinophils% 3.6 % (0-5); Hemoglobin 12.5 g/dL (12.0-15.0); Lymphocyte % 28.6 % (19-41); Mean Corp Hgb Conc 32.9 g/dL (32-36); Mean Corpuscular Hgb 27.7 pg (27.0-32.0); Mean Corpuscular Volume 84.1 fL (81-99); Mean Platelet Vol. 11.5 fl (6.2-12.0); Monocyte# 0.48 X10^3/uL; Monocyte% 7.2 % (0-10); NRBC Flagged by Analyzer 0 % (0-5); Neutrophil # 3.89 X10^3/uL (2.7-7.7); Neutrophil % 58.6 % (47-70); Platelet Count 209 K/mm3 (150-450); RBC Distribution Width CV 14.4 % (11.6-14.6); RBC Distribution Width SD 43.8 fl (35.1-43.9); Red Blood Count 4.52 M/mm3 (4.2-5.4); White Blood Count 6.6 K/mm3 (4.4-11.0)
[2021-11-23 05:33] LABS: Anion Gap 8 (5-15); BUN 21 mg/dL (7-18); BUN/Creat Ratio 48.4 RATIO (10-20); Calcium,Total 8.3 mg/dL (8.5-10.1); Chloride 101 mmol/L (98-107); Creatinine, Serum 0.43 mg/dL (0.55-1.02); EST Glomerular Filtration Rate 147 mL/min (>60); Est Glom Filt Rate - Afr Amer 177 mL/min (>60); Estimated Creatinine Clearance 34.02 ml/min; Glucose 57 mg/dL (74-106); Magnesium 1.7 mg/dL (1.6-2.6); Potassium 2.9 mmol/L (3.5-5.1); Sodium Level 135 mmol/L (136-145)
[2021-11-23 05:37] LABS: Phosphorus 2.6 mg/dL (2.5-4.9)
[2021-11-23] MEDS: Senna Tablet 2 TABLET PO ×2 (08:29→20:37)
--- NOTE | 2021-11-23 08:45 | NURSING ---
Pt sitting up in chair. Pt takes lopressor at home and has not here since yesterday as it was changed to prn. Pt states she feels like her heart is pounding. My heart Doctor put me on that medcine for my heart so it wouldnt pound. Explained to pt she was getting it in her Iv yesterday morning was the last dose but now will consult Dr. Linn. Dr. Linn came in the room not long after this RN and pt conversation about this and added Lopressor back. Dr. Linn ordered Iv to be given now and then 30-60min after that give the oral lopressor. This nurse informed Dr. Linn twice that her BP is only 94/52. Dr. Linn still wants lopressor given.
[2021-11-23] MEDS: Metoprolol Tartrate 5 MG/5 ML Vial 2.5 MG IV (08:58)
[2021-11-23] MEDS: Potassium Chloride Oral Tablet 20 MEQ PO (10:12)
--- NOTE | 2021-11-23 10:43 | PCM.PN.SRG ---
Subjective Subjective No complaints of abdominal pain. Having bowel movements and urinating without difficulty. Objective Data Objective Data Abdomen is soft and nontender Vital Signs: Vital Signs Temp Pulse Resp BP Pulse Ox 97.8 F 96 16 94/52 L 95 11/23/21 08:22 11/23/21 08:58 11/23/21 08:22 11/23/21 08:22 11/23/21 08:29 Oxygen Delivery Method Room Air Weight: 116 lb 6.465 oz Body Mass Index (BMI) 20.6 Intake & Output: Intake and Output for Last 24 Hours 11/21/21 11/22/21 11/23/21 23:59 23:59 23:59 Intake Total 1000 / 1000 1931.25 / 1931.25 1031.5 / 1031.5 Output Total 550 / 550 Balance 1000 / 1000 1381.25 / 1381.25 1031.5 / 1031.5 Medical Nutrition Assessment Dietitian: Malnutrition Criteria Met Start: 11/22/21 10:58 Freq: Status: Active Protocol: Document 11/22/21 10:58 RMA (Rec: 11/22/21 10:58 RMA [id number]) Nutrition Malnutrition Evidence of Malnutrition Exists Yes Malnutrition (moderate): Social/Behavioral/ Environmental Evidenced By Suboptimal Energy Intake ( Moderate),Weight Loss ( Moderate),Physical Changes ( Moderate) Intake Problem Inadequate Oral Intake Etiology related to altered GI function /SBO; N/V Signs/Symptoms as evidenced by NPO Status Active Problem Clinical Problem Chronic Disease or Condition Related Malnutrition Etiology Moderate protein-calorie malnutrition in the context of social circumstance related to inadequate oral intake Signs/Symptoms as evidenced by ~10% wt loss x 1 year with fair oral intake; +NFPA with moderate muscle/ fat wasting in the face/ clavicle Status Active Problem Recommendation Dietitian Recommendations/Changes Advance diet as medically able to Regular w/ ensure compact TID at meals. Adjust ONS as needed to optimize PO and prevent further wt loss. Lab / Micro Data Result Diagrams: 11/23/21 04:50 11/23/21 04:50 Labs: Laboratory Results - last 24 hr 11/23/21 04:50: WBC 6.6, RBC 4.52, Hgb 12.5, Hct 38.0, MCV 84.1, MCH 27.7, MCHC 32.9, RDW Std Deviation 43.8, RDW Coeff of Darren 14.4, Plt Count 209, MPV 11.5, Immature Gran % (Auto) 0.300, Neut % (Auto) 58.6, Lymph % (Auto) 28.6, [place] % (Auto) 7.2, Eos % (Auto) 3.6, Baso % (Auto) 1.7 H, Absolute Neuts (auto) 3.9, Absolute Lymphs (auto) 1.90, Nucleated RBC % 0 11/23/21 04:50: Sodium 135 L, Potassium 2.9 L, Chloride 101, Carbon Dioxide 26.0, Anion Gap 8, BUN 21 H, Creatinine 0.43 L, Estim Creat Clear Calc 34.02, Est GFR (MDRD) Af Amer 177, Est GFR (MDRD) Non-Af 147, BUN/Creatinine Ratio 48.4 H, Glucose 57 L, Calcium 8.3 L, Magnesium 1.7 11/23/21 04:50: Phosphorus 2.6 Micro: Microbiology 11/21/21 19:50 Urine, Clean Catch Urine Culture - Preliminary Mixed Gram Positive Organisms 11/22/21 15:55 Stool Stool Lactoferrin - Final 11/22/21 15:55 Stool Enteric Bacteriology - Final 11/22/21 15:55 Stool Stool Occult Blood (BONNY) - Final Assessment & Plan Assessment/Plan (1) Small bowel obstruction: PLAN: Small bowel obstruction resolved. Will sign off. Patient can follow-up with me in the office 1 week after discharge
[2021-11-23] MEDS: Metoprolol Tartrate 25 MG Tablet PO (10:50)
[2021-11-23] MEDS: APIXABAN 2.5 MG TABLET PO ×2 (10:50→20:37)
--- NOTE | 2021-11-23 11:29 | PN.HOSP_ITS ---
Subjective Subjective Follow-up for small bowel obstruction. A. fib with RVR Patient had 3 bowel movements, 2 small and hard and one was good. No abdominal pain. Clear liquid LR.In the morning her heart rate was in 120s and blood press ure systolic 90s. Metoprolol 2.5 IV given. Heart rate improved in 90s. Objective Data Objective Data Vital Signs: Vital Signs Temp Pulse Resp BP Pulse Ox 97.8 F 96 16 94/52 L 95 11/23/21 08:22 11/23/21 10:50 11/23/21 08:22 11/23/21 08:22 11/23/21 08:29 Oxygen Delivery Method Room Air Weight: 116 lb 6.465 oz Body Mass Index (BMI) 20.6 Intake & Output: Intake and Output for Last 24 Hours 11/21/21 11/22/21 11/23/21 23:59 23:59 23:59 Intake Total 1000 / 1000 1931.25 / 1931.25 1039.75 / 1039.75 Output Total 550 / 550 Balance 1000 / 1000 1381.25 / 1381.25 1039.75 / 1039.75 Medical Nutrition Assessment Dietitian: Malnutrition Criteria Met Start: 11/22/21 10:58 Freq: Status: Active Protocol: Document 11/22/21 10:58 RMA (Rec: 11/22/21 10:58 RMA [id number]) Nutrition Malnutrition Evidence of Malnutrition Exists Yes Malnutrition (moderate): Social/Behavioral/ Environmental Evidenced By Suboptimal Energy Intake ( Moderate),Weight Loss ( Moderate),Physical Changes ( Moderate) Intake Problem Inadequate Oral Intake Etiology related to altered GI function /SBO; N/V Signs/Symptoms as evidenced by NPO Status Active Problem Clinical Problem Chronic Disease or Condition Related Malnutrition Etiology Moderate protein-calorie malnutrition in the context of social circumstance related to inadequate oral intake Signs/Symptoms as evidenced by ~10% wt loss x 1 year with fair oral intake; +NFPA with moderate muscle/ fat wasting in the face/ clavicle Status Active Problem Recommendation Dietitian Recommendations/Changes Advance diet as medically able to Regular w/ ensure compact TID at meals. Adjust ONS as needed to optimize PO and prevent further wt loss. Lab / Micro Data Result Diagrams: 11/23/21 04:50 11/23/21 04:50 Labs: Laboratory Results - last 24 hr 11/23/21 04:50: WBC 6.6, RBC 4.52, Hgb 12.5, Hct 38.0, MCV 84.1, MCH 27.7, MCHC 32.9, RDW Std Deviation 43.8, RDW Coeff of Darren 14.4, Plt Count 209, MPV 11.5, Immature Gran % (Auto) 0.300, Neut % (Auto) 58.6, Lymph % (Auto) 28.6, [place] % (Auto) 7.2, Eos % (Auto) 3.6, Baso % (Auto) 1.7 H, Absolute Neuts (auto) 3.9, Absolute Lymphs (auto) 1.90, Nucleated RBC % 0 11/23/21 04:50: Sodium 135 L, Potassium 2.9 L, Chloride 101, Carbon Dioxide 26.0, Anion Gap 8, BUN 21 H, Creatinine 0.43 L, Estim Creat Clear Calc 34.02, Est GFR (MDRD) Af Amer 177, Est GFR (MDRD) Non-Af 147, BUN/Creatinine Ratio 48.4 H, Glucose 57 L, Calcium 8.3 L, Magnesium 1.7 11/23/21 04:50: Phosphorus 2.6 Micro: Microbiology 11/21/21 19:50 Urine, Clean Catch Urine Culture - Preliminary Mixed Gram Positive Organisms 11/22/21 15:55 Stool Stool Lactoferrin - Final 11/22/21 15:55 Stool Enteric Bacteriology - Final 11/22/21 15:55 Stool Stool Occult Blood (BONNY) - Final Physical Exam Narrative Patient has history of A. fib for many years. Home medications resumed. General: Alert, Oriented x3, Cooperative HEENT: Bilateral hard of hearing atraumatic, PERRLA, EOMI, Normocephalic Oral: No Gingival or Mucosal Lesions/ Ulcerations Neck: Supple, No JVD, Negative Carotid Bruits Lungs: Air entry diminished in bilateral lung bases. No crepitation/rhonchi Cardiovascular: A. fib with RVR, Normal S1, Normal S2, status post MVR. Systolic murmur over cardiac apex, low pitch murmur. Abdomen: Soft, nontender nondistended. Bowel sounds good and normal. No palpable mass. : No renal angle tenderness. No suprapubic tenderness. Extremities: No edema, Capillary Refill Less than 3 Seconds Skin: No rashes, No breakdown Musculoskeletal: No Tenderness to Palpation of Joints or Extremities Neurological: Cranial nerves II-XII grossly intact, DTR 2+/4 and Symmetrical, Neuro grossly intact Psych/Mental Status: Normal Affect, Appropriate. Assessment & Plan Assessment/Plan (1) Small bowel obstruction: (2) Nausea & vomiting: QUALIFIERS: Vomiting type: unspecified Qualified Code(s): R11.2 - Nausea with vomiting, unspecified (3) Afib: QUALIFIERS: Atrial fibrillation type: persistent (not longstanding) Qualified Code(s): I48.19 - Other persistent atrial fibrillation PLAN: This 86-year-old female with history of chronic A. fib on Eliquis admitted with abdominal pain 2 days prior to admission. Abdominal pain started on RUQ with radiation to mid abdomen, severe, sharp, 8-10/10 intensity, associated with nausea and vomiting. 1. Small bowel obstruction mainly over left side possible enteritis: CT abdomen pelvis with IV contrast without oral contrast reviewed independently and with the surgeon. The distended loops of bowel mainly jejunum with diffuse wall thickening. Suspicion of enteritis. If patient makes a stool, will send for enteric bacteriology panel, leukocytes and occult blood. It also shows feces in colon with diverticulosis. We will keep the patient n.p.o until she makes bowel movement. Senna S, 2 tablet twice daily. Discussed with Dr. Joshi. Continue IV fluid Ringer lactate. On conservative management. 11/23: Clear liquids ordered. Advance diet as per tolerated. Continue senna S. Enteric bacteriology panel negative. Stool for lactoferrin and occult blood negative. Urine culture mixed gram-positive organism, less than 1000 consistent with contamination. UTI ruled out Leukocytosis Review of ED labs showed white count of 13.9. Most likely due to viral enteritis. Repeat CBC monitoring shows resolution. Magnesium and phosphorus on lower side of normal, replaced. Hypotonic hypovolemic hyponatremia, partly contributed from HCTZ: Mild hypokalemia. Labs monitoring shows improvement in serum sodium. IV KCl getting replaced. 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 Her casino cage supervisor referred for EP evaluation to evaluate for ablation/pacemaker. On IV metoprolol 2.5 mg as needed for heart rate more than 120. 11/23: A. fib with RVR: IV metoprolol 2.5 mg 1 dose now and then home dose metoprolol tartrate 25 mg a.m. and 12.5 mg p.m. Eliquis resumed. Home medication reconciliation done. Hypertension: Blood pressure is normal. Hold HCTZ. Monitor BP. DVT prophylaxis: SCD ordered and on Eliquis Signout: If heart rate is controlled and patient tolerates soft diet, discharge tomorrow AM. Charges/Coding Visit Charges Inpatient E&M: 54845 Subs Hosp L2
[2021-11-23] MEDS: Metoprolol Tartrate 25 MG Tablet 12.5 MG PO (20:37)
[2021-11-23] MEDS: Atorvastatin Calcium 20 MG Tablet PO (20:37)
[2021-11-24 02:54] VITALS: BP 138/85; PULSE 78; RESP 18; TEMP 36.9; O2SAT 98
[2021-11-24 03:00] VITALS: PULSE 85
[2021-11-24 05:57] LABS: Absolute Lymphocyte Count 2.39 X10^3/uL (0.83-4.51); Absolute Neutrophil Count 4.3 X10^3/uL (2.0-7.7); Basophil# 0.11 X10^3/uL; Basophil% 1.4 % (0-1); Eosinophil# 0.35 X10^3/uL; Eosinophils% 4.5 % (0-5); Lymphocyte # 2.39 X10^3/ul (0.83-4.51); Mean Corp Hgb Conc 33.3 g/dL (32-36); Mean Corpuscular Hgb 27.5 pg (27.0-32.0); Mean Corpuscular Volume 82.5 fL (81-99); Mean Platelet Vol. 11.7 fl (6.2-12.0); Monocyte# 0.56 X10^3/uL; Monocyte% 7.3 % (0-10); NRBC Flagged by Analyzer 0 % (0-5); Neutrophil # 4.28 X10^3/uL (2.7-7.7); Neutrophil % 55.5 % (47-70); Platelet Count 235 K/mm3 (150-450); RBC Distribution Width CV 14.5 % (11.6-14.6); RBC Distribution Width SD 43.2 fl (35.1-43.9); Red Blood Count 4.73 M/mm3 (4.2-5.4); White Blood Count 7.7 K/mm3 (4.4-11.0)
[2021-11-24 06:23] LABS: Anion Gap 6 (5-15); BUN 9 mg/dL (7-18); BUN/Creat Ratio 21.1 RATIO (10-20); Calcium,Total 8.2 mg/dL (8.5-10.1); Chloride 101 mmol/L (98-107); Creatinine, Serum 0.43 mg/dL (0.55-1.02); EST Glomerular Filtration Rate 149 mL/min (>60); Est Glom Filt Rate - Afr Amer 181 mL/min (>60); Estimated Creatinine Clearance 34.02 ml/min; Glucose 83 mg/dL (74-106); Potassium 3.7 mmol/L (3.5-5.1); Sodium Level 136 mmol/L (136-145)
[2021-11-24 08:00] VITALS: BP 141/83; PULSE 83; RESP 18; TEMP 36.4; O2SAT 97
[2021-11-24 08:17] VITALS: PULSE 83
[2021-11-24] MEDS: Metoprolol Tartrate 25 MG Tablet PO (08:17)
[2021-11-24] MEDS: APIXABAN 2.5 MG TABLET PO (08:18)
[2021-11-24] MEDS: Potassium Chloride Oral Tablet 20 MEQ PO (08:18)
[2021-11-24 08:24] VITALS: PULSE 104
--- NOTE | 2021-11-24 11:33 | DS.PCM_ITS ---
Providers Date of Admission: 11/21/21 Date of Discharge: 11/24/21 Primary Care Physician: Dr. Addie Jacobo MD Consultations 11/21/21 23:20 Consult: General Surgery Routine Consulting Provider: Jaron Joshi Reason for Consult: SBO EMERGENT Consult: No MD Notified: Yes Date Notified: 11/22/21 Time Notified: 07:00 Method of Notification: saw pt Reason For Visit: SBO Diagnosis Discharge Diagnosis (1) Small bowel obstruction: Status: Acute Code(s): K56.609 - Unspecified intestinal obstruction, unspecified as to partial versus complete obstruction (2) Nausea & vomiting: Status: Acute Code(s): R11.2 - Nausea with vomiting, unspecified Qualifiers: Vomiting type: unspecified Qualified Code(s): R11.2 - Nausea with vomiting, unspecified (3) Afib: Status: Acute Code(s): I48.91 - Unspecified atrial fibrillation Qualifiers: Atrial fibrillation type: persistent (not longstanding) Qualified Code(s): I48.19 - Other persistent atrial fibrillation Medications at Discharge Home Medications Eliquis 2.5 mg PO DAILY 11/21/21 atorvastatin 20 mg PO QHS 11/21/21 hydrochlorothiazide 12.5 mg PO DAILY 11/21/21 metoprolol tartrate 12.5 mg PO DAILY 11/21/21 potassium chloride 10 meq PO DAILY 11/21/21 Hospital Course Operations None Procedures None Summary of Care Provided Minutes Spent on Discharge: 38 Hospital Course: Mrs. Galan is an 86-year-old white female who presented to the emergency department at [facility] on 11/21/2021 with nausea and vomiting as well as right upper quadrant pain that started 2 days prior to presentation. On presentation she stated that the pain radiated to her mid abdomen and was severe in nature. She described the pain as sharp and there were noameliorating or aggravating factors. She then developed nausea and vomiting. She reported that her vomitus was initially dark brown and then became clear. On the day of presentation she went to see her primary care physician who referred her to the emergency department. Given her symptoms a CT scan with contrast was performed in the emergency department and she was found to have a small bowel obstruction and was found to have moderate wall thickening and luminal narrowing at the proximal ileum with mildly distended fluid filled loops, multiple diverticuli in the colon with significant fecal retention as well as mucosal hyperenhancement at the ascending colon due to inflammation. 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 She was given IV fluids and admitted to the medical floor with antiemetics. She had significant improvement in her pain within about 12 hours of admission and her vomiting improved as well. Her last bowel movement prior to presentation was the day before she came in. She was evaluated by general surgery and they felt that this was likely due to enteritis and that she should improve clinically without any surgical intervention. Stool sample for lactoferrin was done and negative, enteric bacteriology was negative and stool occult blood was negative. A urine culture was performed and was negative for infection. Patient did develop A. fib with RVR while she was hospitalized however this is likely related to her metoprolol being held and her heart rate improved and medically once her oral metoprolol was reinitiated. On 11/23/2021 her symptoms had significantly proved and she was able to start a p.o. diet and tolerated this well. She was maintained on a p.o. diet her p.o. medications were reinitiated. She was able to be discharged home in stable condition on 11/24/2021. We recommended follow-up with her primary care physician within the next 2 weeks and follow-up with Dr. Joshi in 1 week. Discharge diagnoses: Small bowel obstruction-resolved Enteritis-resolved Paroxysmal atrial fibrillation with RVR-rate is now controlled Leukocytosis-resolved Mild hyponatremia-resolved--> will restart HCTZ but recommend monitoring BMP as an outpatient Hypokalemia-resolved Hypertension Hyperlipidemia Physical Exam Const alert, oriented x3, no apparent distress, average body habitus, no limitations and well nourished Constitutional Narrative: Elderly white female sitting up in a chair at the bedside, has just finished eating breakfast, appears well, nontoxic General Appearance: cooperative, comfortable, well kempt and well developed Orientation / Consciousness: awake Exam Limitations: no limitations HEENT normocephalic, head/scalp atraumatic and moist oral mucous membranes; Negative for hearing grossly normal bilaterally HEENT Narrative: Mildly hard of hearing, dentition is fair for age, Mallampati is 2, no thrush Eyes PERRL, EOMs intact bilaterally and conjunctivae normal Eyes Narrative: No scleral icterus Neck no lymphadenopathy, supple and no JVD Neck Narrative: Trachea midline, no thyroid enlargement Resp normal respiratory effort, no retractions, no use of accessory muscles and clear to auscultation bilaterally Auscultation: Negative for crackles, rales, rhonchi or wheezes Cardio regular rate, regular rhythm, S1 normal heart sound, S2 normal heart sound, no murmurs, no rub, no gallops, no clicks and no JVD GI normal to inspection, nondistended, normoactive bowel sounds, soft to palpation, non-tender and non-distended Extremity no clubbing, cyanosis or edema Skin no rashes or lesions noted, no wounds, skin turgor normal and no jaundice Neuro oriented x3, CN's II-XII intact bilaterally, moves all extremities and no focal motor deficits Neuro Narrative: Mild generalized weakness-proximal greater than distal Sensorium / Orientation: awake and alert Speech: speech normal Psych affect normal Medical Records Data Medical Nutrition Assessment Dietitian: Malnutrition Criteria Met Start: 11/22/21 10:58 Freq: Status: Active Protocol: Document 11/22/21 10:58 RMA (Rec: 11/22/21 10:58 RMA [id number]) Nutrition Malnutrition Evidence of Malnutrition Exists Yes Malnutrition (moderate): Social/Behavioral/ Environmental Evidenced By Suboptimal Energy Intake ( Moderate),Weight Loss ( Moderate),Physical Changes ( Moderate) Intake Problem Inadequate Oral Intake Etiology related to altered GI function /SBO; N/V Signs/Symptoms as evidenced by NPO Status Active Problem Clinical Problem Chronic Disease or Condition Related Malnutrition Etiology Moderate protein-calorie malnutrition in the context of social circumstance related to inadequate oral intake Signs/Symptoms as evidenced by ~10% wt loss x 1 year with fair oral intake; +NFPA with moderate muscle/ fat wasting in the face/ clavicle Status Active Problem Recommendation Dietitian Recommendations/Changes Advance diet as medically able to Regular w/ ensure compact TID at meals. Adjust ONS as needed to optimize PO and prevent further wt loss. Weight / BMI Weight Weight: 52.8 kg Body Mass Index (BMI) 20.6 ABG / Lab / Microbiology Data Result Diagrams: 11/24/21 04:40 11/24/21 04:40 Laboratory: Laboratory Results - last 24 hr 11/24/21 04:40: WBC 7.7, RBC 4.73, Hgb 13.0, Hct 39.0, MCV 82.5, MCH 27.5, MCHC 33.3, RDW Std Deviation 43.2, RDW Coeff of Darren 14.5, Plt Count 235, MPV 11.7, Im mature Gran % (Auto) 0.300, Neut % (Auto) 55.5, Lymph % (Auto) 31.0, Angelina % (Auto) 7.3, Eos % (Auto) 4.5, Baso % (Auto) 1.4 H, Absolute Neuts (auto) 4.3, Absolute Lymphs (auto) 2.39, Nucleated RBC % 0 11/24/21 04:40: Sodium 136, Potassium 3.7, Chloride 101, Carbon Dioxide 29.0, Anion Gap 6, BUN 9, Creatinine 0.43 L, Estim Creat Clear Calc 34.02, Est GFR (MDRD) Af Amer 181, Est GFR (MDRD) Non-Af 149, BUN/Creatinine Ratio 21.1 H, Glucose 83, Calcium 8.2 L Microbiology: Microbiology 11/21/21 19:50 Urine, Clean Catch Urine Culture - Final Mixed Gram Positive Organisms 11/22/21 15:55 Stool Stool Lactoferrin - Final 11/22/21 15:55 Stool Enteric Bacteriology - Final 11/22/21 15:55 Stool Stool Occult Blood (BONNY) - Final D/C Instructions Discharge Diet: Light diet - advance as tolerated Discharge Activity: Return to Normal Activity Meaningful Use Info Meaningful Use Diagnoses (Choose all that apply): None applicable Discharge Plan Admission Admit Date/Time: 11/21/21 22:32 Primary Reason for Your Visit: Abdominal pain Attending Provider: Angelina Gipson Primary Care Provider: Addie Jacobo Consulting Providers: Jaron Joshi Discharge Orders/Prescriptions Prescriptions: Continued atorvastatin 20 mg tablet 20 mg PO QHS RF: 0 potassium chloride 10 mEq tablet,ER particles/crystals 10 meq PO DAILY RF: 0 Eliquis 2.5 mg tablet 2.5 mg PO DAILY RF: 0 hydrochlorothiazide 12.5 mg capsule 12.5 mg PO DAILY RF: 0 metoprolol tartrate 25 mg tablet 12.5 mg PO DAILY RF: 0 Referrals / Follow Up: Addie Jacobo MD [Primary Care Provider] - Within 2 Weeks Jaron Joshi MD [STAFF PHYSICIAN] - In 1 Week Disposition Disposition (needs filled in before D/C Order can be placed): Home, Self Care Charges/Coding Visit Charges Inpatient E&M: [id number] Disch Hosp
[2021-11-24 11:45] VITALS: BP 140/90; PULSE 103; RESP 16; TEMP 36.5; O2SAT 100
== END 2021-11-24 12:20 | disposition home or self-care (01) | DRG 392 ==
LOC: ED 22:46 → MS3 23:04
PROVIDERS: Internal Medicine; Admitting Provider Hospitalist; Emergency Provider Emergency Medicine; PCP Internal Medicine; Visit Provider Internal Medicine
DX: K52.9 Noninfective gastroenteritis and colitis, unspecified (principal); E44.0 Moderate protein-calorie malnutrition; E87.1 Hypo-osmolality and hyponatremia; I48.0 Paroxysmal atrial fibrillation; E78.5 Hyperlipidemia, unspecified; K57.30 Diverticulosis of large intestine without perforation or abscess without bleeding; I10 Essential (primary) hypertension; E87.6 Hypokalemia; Z87.891 Personal history of nicotine dependence; Z79.01 Long term (current) use of anticoagulants; Z68.20 Body mass index [BMI] 20.0-20.9, adult; Z79.899 Other long term (current) drug therapy
CPT/HCPCS: 36415; 74177; 80048; 80076; 81001; 82274; 83605; 83630; 83690; 83735; 84100; 85025; 87086; 87088; 87506; 93005; 99284; J7030; J7040; J7050; J7120; Q9967; A4216; J2405

== ENCOUNTER 2024-07-28 15:21 | Emergency (ER) | payer MEDICARE, OTHER, SELFPAY ==
[2024-07-28 15:21] VITALS: BP 117/71; PULSE 88; RESP 17; TEMP 36.2; O2SAT 98; BMI 21.9
[2024-07-28 17:20] VITALS: BP 98/62; PULSE 82; RESP 19
--- NOTE | 2024-07-28 17:26 | EX.ED.UPPERE ---
HPI History of Present Illness Chief Complaint: Upper Extremity Injury Informant: patient Narrative Narrative: Patient is an 89-year-old female with history of atrial fibrillation (on Eliquis) and recent pacemaker placement due to A-fib by Dr. Lewis at [facility]. This was performed 3 weeks ago. 2 days ago patient woke up with left elbow pain. She notes that previous night she slept for 8 hours with her elbow tucked in because she was afraid of raising her arm above her head. She has no she was not having any pain, redness or swelling before that. She took Tylenol yesterday with only mild relief of her pain. Denies any new injuries or falls. Skin did have redness, pain and swelling and saw her PCP today who recommended she come to the ER for further evaluation. Denies any fever or chills. No she does feel cold sometimes not sure that is related. Denies any chest pain or difficulty breathing. [facility] Medical History Lab test negative for COVID-19 virus Afib Small bowel obstruction Abdominal pain Hyperlipidemia Hypertension Home Medications ?Medication ?Instructions ?Recorded ?Last Taken ?Type apixaban 2.5 mg tablet (Eliquis) 2.5 mg PO DAILY afib 11/21/21 11/19/21 History atorvastatin 20 mg tablet 20 mg PO QHS cholesterol 11/21/21 11/19/21 History hydrochlorothiazide 12.5 mg capsule 12.5 mg PO DAILY HTN 11/21/21 11/21/21 History metoprolol tartrate 25 mg tablet 12.5 mg PO DAILY HTN 11/21/21 11/21/21 History potassium chloride 10 mEq 10 meq PO DAILY supplement 11/21/21 11/19/21 History tablet,extended release(part/cryst) doxycycline hyclate 100 mg tablet 100 mg PO DAILY #14 tabs 07/28/24 Unknown Rx Allergy/AdvReac Type Severity Reaction Status Date / Time amoxicillin Allergy Hives Verified 07/28/24 15:21 codeine Allergy Hives Verified 07/28/24 15:21 duloxetine (From Cymbalta) Allergy Hives Verified 07/28/24 15:21 pramipexole Allergy Hives Verified 07/28/24 15:21 Family History Other Breast cancer Cancer Surgical History Hx of shoulder surgery History of hysterectomy Social History Smoking Status: Never smoker ROS ROS ED Constitutional Constitutional ED: Denies chills or fever(s) Cardiovascular Cardiovascular: Denies chest pain Respiratory/Chest Respiratory/Chest: Denies cough or dyspnea Gastrointestinal Gastrointestinal: Denies nausea or vomiting Musculoskeletal Musculoskeletal: Reports other Details: Left elbow pain Integumentary Reports other Details: Redness to the left elbow Neurologic Neurologic: Denies paresthesias or weakness Hematologic/Lymphatic Hematologic/Lymphatic: Reports easy bleeding, easy bruising and other Details: On Eliquis EXAM Physical Exam Const Vital Signs: 07/28/24 15:21 07/28/24 17:20 Temperature 97.2 F L Temperature Source Temporal Pulse Rate 88 82 Respiratory Rate 17 19 H Blood Pressure 117/71 98/62 Blood Pressure Mean 86 74 Pulse Ox 98 Oxygen Delivery Method Room Air Positive well nourished and well developed General Appearance ED: well developed HEENT Reports moist mucous membranes Neck supple Chest Wall inspection of chest normal and palpation of chest normal Chest Narrative: healing surgical wounds at left anterior chest wall from recent pacemaker insertion. No abnormal erythema, fluctuance or drainage. No tenderness to palpation. Resp normal respiratory effort and clear to auscultation bilaterally Cardio regular rate and regular rhythm Extremity Extremity Narrative: Left upper extremity?tenderness palpation of the posterior aspect of the left elbow with associated soft tissue swelling, warmth and mild erythema. No obvious joint effusions appreciated. Tenderness to palpation of the olecranon process. Pain with full extension of the elbow but no short arc range of motion pain. No pain with pronation or supination of the forearm. No pain with palpation or range of motion of the wrist. Compartments are soft. There is also some swelling of the dorsal aspect of the proximal forearm present. Neuro oriented x3 Sensorium / Orientation: alert Psych mental status grossly normal Skin Skin Narrative: Mild erythema of the left dorsal elbow/proximal forearm with no well-demarcated areas. MDM MDM MDM Narrative Medical decision making narrative: Patient is evaluated for for atraumatic left elbow pain and swelling. She had a pacemaker placed 3 weeks ago but this started today. Denies any systemic symptoms. Patient is well-appearing with normal vital signs. On exam she is soft tissue swelling more of the forearm on the aspect of the dorsal/proximal. I do not appreciate any significant skin changes concerning or well-demarcated edges consistent with a cellulitis. No associated imaging streaking. No short arc range of motion pain is low suspicion for septic arthritis or gout. The pain is not where the bursa is a lower suspicion for bursitis. X-ray obtained does not show any acute fracture, reviewed by myself as well as radiology. I initially ordered a venous duplex ultrasound however cardiac ultrasound none currently in house. Have a lower suspicion for DVT as she is anticoagulant Eliquis. Bedside ultrasound performed by myself does not show any DVT of the left arm. Ultrasound of the area shows cobblestoning of the soft tissue but no definitive fluid collection consistent with an abscess. No vascular flow noted. I suspect this is more of a traumatic soft tissue swelling given that she laid on her arm for 8 hours the day before this started. I do not think it is related to her pacemaker as her pacemaker pocket itself in the distal arm as well as the proximal arm look good and normal. Patient counseled that this could be an early cellulitis but have a lower suspicion of this. Will be given a [id number] course of antibiotics. Counseled that if she develops fever, worsening redness or pain she should start taking it. Counseled she feels uncomfortable with that she can always return to the emergency room for wound recheck. Patient verbalized agreement and understanding of the plan. Discharged home in stable condition. Bob wrap is placed on the area of swelling. Patient counseled on icing the area and elevating it. Discharge Plan Triage Chief Complaint: Upper Extremity Injury ED Provider: Cordelia Corcoran Dx/Rx/DC Orders Clinical Impression: Localized swelling of left forearm, Anticoagulant long-term use Prescriptions: New doxycycline hyclate 100 mg tablet 100 mg PO DAILY Qty: 14 0RF No Action atorvastatin 20 mg tablet 20 mg PO QHS potassium chloride 10 mEq tablet,ER particles/crystals 10 meq PO DAILY Eliquis 2.5 mg tablet 2.5 mg PO DAILY hydrochlorothiazide 12.5 mg capsule 12.5 mg PO DAILY Patient Comments: TAKE 1 CAPSULE BY MOUTH ONCE DAILY metoprolol tartrate 25 mg tablet 12.5 mg PO DAILY Patient Comments: TAKE 1/2 (ONE-HALF) TABLET BY MOUTH TWICE DAILY Primary Care Provider: Addie Jacobo Referrals: Addie Jacobo MD [Primary Care Provider] - Activity Restrictions/Additional Instructions: Follow-up with primary care doctor on Wednesday for wound recheck. At this time I think this is more of a pressure wound from how you are sleeping and not an infection. I do not think this is a DVT/blood clot. I do not think there is a joint infection or effusion at this time. Your x-ray does not show any broken bones. Wear the Bob wrap for pressure, elevate your elbow to the level of your heart when resting and ice the area. If you develop fever, increased redness or red streaking in your arm please start taking the antibiotics prescribed today or return to the ER for recheck. If you do have improvement of symptoms you do not need to take the antibiotics. Take Tylenol as needed for pain. Print Language: Sammarinese Disposition Disposition: Home, Self Care
[2024-07-28] MEDS: Acetaminophen 325 MG Tablet 650 MG PO (17:37)
--- NOTE | 2024-07-28 17:40 | RAD_ITS ---
STUDY: X-RAY - LEFT ELBOW REASON FOR EXAM: Female, 89 years old. Injury/Pain TECHNIQUE: 3 view(s) of the elbow. COMPARISON: None. FINDINGS: Normal visualized humerus, radius and ulna. Normal radiocapitellar and ulnotrochlear articulations. The soft tissue structures are unremarkable. There is no demonstrated fracture. RAD/Elbow min 3 Views IMPRESSION: No definite acute or significant abnormality seen. Electronically Signed: Ricardo Estrada MD at 18:04 EDT ,
[2024-07-28 19:00] VITALS: BP 132/68; PULSE 74; RESP 16; O2SAT 98
[2024-07-28 19:28] VITALS: BP 132/68; PULSE 74; RESP 16; TEMP 36.7; O2SAT 98
== END 2024-07-28 19:43 | disposition home or self-care (01) ==
PROVIDERS: Emergency Provider Emergency Medicine; PCP Internal Medicine; Visit Provider Emergency Medicine
DX: R22.32 Localized swelling, mass and lump, left upper limb (principal); I48.91 Unspecified atrial fibrillation; M25.522 Pain in left elbow; I10 Essential (primary) hypertension; E78.5 Hyperlipidemia, unspecified; Z88.0 Allergy status to penicillin; Z95.0 Presence of cardiac pacemaker; Z87.19 Personal history of other diseases of the digestive system; Z79.01 Long term (current) use of anticoagulants; Z79.899 Other long term (current) drug therapy
CPT/HCPCS: 73080; 99282

== ENCOUNTER 2025-08-13 13:29 | Emergency (ER) | payer MEDICARE, OTHER, SELFPAY ==
[2025-08-13 13:31] VITALS: BP 129/82; PULSE 86; RESP 16; TEMP 36.8; O2SAT 81; BMI 21.3
[2025-08-13 13:32] VITALS: BP 129/82; PULSE 84; RESP 14; TEMP 36.8; O2SAT 99
--- NOTE | 2025-08-13 14:22 | ED.VIS.FEGU ---
HPI HPI - Female History of Present Illness Chief Complaint: Flank Pain Narrative Narrative: Chief complaint and HPI: 89-year-old female with past medical history of atrial fibrillation on Eliquis, HTN, HLD presents for evaluation of right sided lumbar back pain. Patient states she was recently treated for UTI approximately 2 weeks ago. States she had her antibiotics switched to a different medication due to it acrid antibiotic. Patient states she has been having some right lower lumbar back pain. She went to the urgent care in which they told her she had a low-grade temperature and sent her to the emergency department. Patient states originally she had urinary frequency and dysuria however these resolved with antibiotics. She denies any fever, chills, shortness of breath, chest pain abdominal pain, nausea, vomiting, dysuria. Denies any weakness or numbness or tingling. Pain does not radiate down the leg. No recent falls. Review of systems: See HPI Medications: As listed on the chart Allergies: As listed on the chart PFSH: Per chart Vital signs: As listed on the chart. Reviewed. Physical exam: Gen: A&O x3, NAD Head: Normocephalic, atraumatic Eyes: No sclera icterus, conjunctiva clear ENT: Moist mucous membranes CV: RRR, no murmurs Resp: Lungs CTA BL, no w/r/c GI: Abd soft, non-distended, non-tender, no r/r/g : No CVA tenderness Musc: Full ROM, no deformity, no midline spinal tenderness, no bony step-offs, mild tenderness to palpation of the paraspinal musculature of the right lumbar spine Skin: Warm, dry Neuro: Alert, oriented, grossly intact, sensation intact Psych: Cooperative, appropriate mood and affect [facility] Medical History Lab test negative for COVID-19 virus Afib Small bowel obstruction Abdominal pain Hyperlipidemia Hypertension Home Medications Medication Instructions Recorded Last Taken Type apixaban 2.5 mg tablet (Eliquis) 2.5 mg PO DAILY afib 11/21/21 08/13/25 History atorvastatin 20 mg tablet 20 mg PO QHS cholesterol 11/21/21 08/13/25 History alendronate 70 mg tablet 70 mg PO QWEEK 08/13/25 08/12/25 History amlodipine 10 mg tablet 10 mg PO DAILY 08/13/25 08/12/25 History calcium carbonate (Calcium 600) 600 mg PO DAILY 08/13/25 08/12/25 History cranberry fruit 450 mg tablet 450 mg PO DAILY 08/13/25 08/12/25 History (cranberry) multivitamin (Daily Multi-Vitamin 1 tab PO DAILY 08/13/25 08/12/25 History tablet) potassium chloride 20 mEq 20 meq PO DAILY 08/13/25 08/12/25 History tablet,extended release(part/cryst) sodium chloride 0.65 % nasal spray 1 spray intranasal BID 08/13/25 08/12/25 History aerosol (Altamist) sotalol 80 mg tablet 40 mg PO QHS 08/13/25 08/12/25 History sotalol 80 mg tablet 80 mg PO DAILY 08/13/25 08/13/25 History Allergy/AdvReac Type Severity Reaction Status Date / Time amoxicillin Allergy Hives Verified 08/13/25 13:32 codeine Allergy Hives Verified 08/13/25 13:32 duloxetine (From Cymbalta) Allergy Hives Verified 08/13/25 13:32 pramipexole Allergy Hives Verified 08/13/25 13:32 Family History Other Breast cancer Cancer Surgical History Hx of shoulder surgery History of hysterectomy Social History Smoking Status: Never smoker EXAM Physical Exam Const Vital Signs: 08/13/25 13:31 08/13/25 13:32 08/13/25 15:29 Temperature 98.2 F 98.2 F Temperature Source Oral Oral Pulse Rate 86 84 84 Respiratory Rate 16 14 16 Blood Pressure 129/82 H 129/82 H 120/82 H Blood Pressure Mean 97 97 94 Pulse Ox 81 99 98 Oxygen Delivery Method Room Air MDM MDM MDM Narrative Medical decision making narrative: 89-year-old female with past medical history of atrial fibrillation on Eliquis, HTN, HLD presents for evaluation of right sided lumbar back pain. Patient states she was recently treated for UTI approximately 2 weeks ago. States she had her antibiotics switched to a different medication due to it acrid antibiotic. Patient states she has been having some right lower lumbar back pain. She went to the urgent care in which they told her she had a low-grade temperature and sent her to the emergency department. States her UTI symptoms have resolved. On presentation, patient no acute distress. Afebrile. See physical exam findings. Differential diagnosis includes but is not limited to myofascial spasm, urolithiasis, UTI, electrolyte abnormality. NS bolus, morphine, Zofran ordered for symptoms. Laboratory workup ordered including urine and CT abdomen pelvis without contrast. CBC with mild leukocytosis 11.3. No anemia. Platelets unremarkable. BMP without JIA. UA is negative for UTI and blood. CT abdomen pelvis shows a small left inguinal hernia containing nondilated small bowel loops. Stable scarring at the lung bases. Small right renal cyst. No hydronephrosis. No urolithiasis. No clear etiology for patient's lumbar back pain although I suspect it may be secondary to muscular pain. Recommend Tylenol. IcyHot and heating pad as needed. Follow-up with primary care physician. Return back to ED symptoms change or worsen. She confirmed understand the plan. Patient stable to discharge home. She was updated on the incidental findings on her CT abdomen pelvis. Impression: 1. Right lower lumbar back pain 2. Left incidental inguinal hernia 3. Right renal cyst Lab Data Labs: Laboratory Results - last 24 hr 08/13/25 08/13/25 14:20 15:21 WBC 11.3 H RBC 4.18 L Hgb 12.0 Hct 36.2 L MCV 86.6 MCH 28.7 MCHC 33.1 RDW Std Deviation 43.8 RDW Coeff of Darren 13.7 Plt Count 322 MPV 10.8 Immature Gran % (Auto) 0.400 Neut % (Auto) 75.8 H Lymph % (Auto) 11.9 L [place] % (Auto) 11.0 H Eos % (Auto) 0.4 Baso % (Auto) 0.5 Absolute Neuts (auto) 8.6 H Absolute Lymphs (auto) 1.35 Nucleated RBC % 0 Sodium 134 Potassium 3.9 Chloride 96 L Carbon Dioxide 27.0 Anion Gap 11 BUN 10 Creatinine 0.47 L Estim Creat Clear Calc 37.71 L Est GFR (MDRD) Non-Af 91 BUN/Creatinine Ratio 22.0 H Glucose 102 H Calcium 9.4 Urine Color Straw Urine Clarity Sl. Cloudy Urine pH 7.0 Ur Specific [place] 1.010 Urine Protein 30 H Urine Glucose (UA) Normal Urine Ketones Negative Urine Occult Blood Negative Urine Nitrite Negative Urine Bilirubin Negative Urine Urobilinogen Normal Ur Leukocyte Esterase Negative Urine RBC 0-5 SEEN Urine WBC 0-5 SEEN Ur Squamous Epith Cells 0-5 SEEN Amorphous Sediment 2+ Urine Bacteria 1+ Urine Mucus 0 SEEN Radiography Diagnostic Testing: Clinical Impression(s) from Imaging Studies Abdomen/Pelvis CT 08/13/25 15:54 IMPRESSION: Small left inguinal hernia containing nondilated small bowel loops. Stable scarring at the lung bases. Small right renal cyst. Reading Location: [id number] Discharge Plan Triage Chief Complaint: Flank Pain ED Provider: Boris Arnold Dx/Rx/DC Orders Clinical Impression: Lumbar back pain Instructions: ED Back Pain (Acute or Chronic) Prescriptions: No Action atorvastatin 20 mg tablet 20 mg PO QHS Eliquis 2.5 mg tablet 2.5 mg PO DAILY sotalol 80 mg tablet 80 mg PO DAILY Rx Instructions: AM alendronate 70 mg tablet 70 mg PO QWEEK potassium chloride 20 mEq tablet,ER particles/crystals 20 meq PO DAILY amlodipine 10 mg tablet 10 mg PO DAILY sotalol 80 mg tablet 40 mg PO QHS calcium carbonate [Calcium 600] 600 mg calcium (1,500 mg) tablet 600 mg PO DAILY cranberry 450 mg tablet 450 mg PO DAILY Rx Instructions: administer with a meal Altamist 0.65 % aerosol,spray 1 spray intranasal BID multivitamin [Daily Multi-Vitamin] Tablet 1 tab PO DAILY Primary Care Provider: Addie Jacobo Referrals: Addie Jacobo MD [Primary Care Provider, Internal Medicine] - 3-5 Days Activity Restrictions/Additional Instructions: Follow-up with primary care physician. I suspect that your back pain is secondary to muscle pain. Recommend Tylenol as needed for pain. IcyHot and heating pad. Follow-up with primary care physician. Return back to ED if symptoms change or worsen. Print Language: Ken[place] Disposition Disposition: Home, Self Care
[2025-08-13 14:30] LABS: Hematocrit 36.2 % (37-47); Hemoglobin 12.0 g/dL (12.0-15.0); Immature Granulocytes Count 0.040 X10^3/uL (0.0-0.0); Mean Corp Hgb Conc 33.1 g/dL (32-36); Mean Corpuscular Volume 86.6 fL (81-99); Mean Platelet Vol. 10.8 fl (6.2-12.0); NRBC Flagged by Analyzer 0 % (0-5); Platelet Count 322 K/mm3 (150-450); RBC Distribution Width CV 13.7 % (11.6-14.6); RBC Distribution Width SD 43.8 fl (35.1-43.9); Red Blood Count 4.18 M/mm3 (4.2-5.4); White Blood Count 11.3 K/mm3 (4.4-11.0)
[2025-08-13] MEDS: 0.9% Normal Saline (1000mL) 1,000 ML 999 ML IV (14:33)
[2025-08-13 15:12] LABS: Anion Gap 11 (5-15); BUN 10 mg/dL (4-19); BUN/Creat Ratio 22.0 RATIO (10-20); Calcium,Total 9.4 mg/dL (7.6-11.0); Carbon Dioxide 27.0 mmol/L (21.0-32.0); Chloride 96 mmol/L (98-108); Estimated Creatinine Clearance 37.71 ml/min (50-250); Glucose 102 mg/dL (70-99); Potassium 3.9 mmol/L (3.3-5.1)
[2025-08-13 15:27] LABS: Mucous, Urine 0 SEEN /hpf (<or=2+)
[2025-08-13 15:29] VITALS: BP 120/82; PULSE 84; RESP 16; O2SAT 98
--- NOTE | 2025-08-13 15:54 | CT_ITS ---
PROCEDURE: ABDOMEN/PELVIS WITHOUT CONT 08/13/2025 REASON FOR EXAM: RIGHT LUMBAR BACK PAIN, RECENT UTI TECHNIQUE: Procedure Code: CTABDPEL Modality: CT Procedure: ABDOMEN/PELVIS WITHOUT CONT Noncontrast technique limits evaluation of the abdominal and pelvic viscera. Coronal and Sagittal reconstruction series were provided. One or more dose reduction techniques were used (e.g., Automated exposure control, adjustment of the mA and/or kV according to patient size, use of iterative reconstruction technique). RADIATION DOSE SUMMARY: CTDlvol: 5.61 mGy DLP: 257.91 mGycm COMPARISON: November 21, 2021. FINDINGS: Lung bases: Stable mild increased markings at the lung bases suggestive of scarring. 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 Coronary artery calcification. Liver: Normal size. No obvious mass. A 5 mm cyst is seen in the dome of the right lobe of the liver. Gallbladder: No gallstones are seen. Spleen: Normal size. Pancreas: Diffuse fatty atrophy. Adrenals: The adrenal glands are unremarkable. Kidneys: Stable 2 cm cyst in the upper medial aspect of the right kidney. No evidence of hydronephrosis. No ureteral obstruction is seen. Bladder: The urinary bladder is distended. Reproductive Organs: The patient is status post hysterectomy. Bowel: Small left inguinal hernia containing nondilated small bowel loops. Appendix: The appendix is not identified. There is no inflammatory process identified in the right lower quadrant to suggest appendicitis. Lymph nodes: No suspicious lymph node enlargement. Vasculature: Moderate degree of atherosclerotic plaque formation of the abdominal aorta and its major visceral branches. Peritoneum / Retroperitoneum: Unremarkable Bones: Degenerative changes of the spine. Minimal anterior listhesis of L4 on L5. Facet joint osteoarthritis. CT/Abdomen/Pelvis without Cont IMPRESSION: Small left inguinal hernia containing nondilated small bowel loops. Stable scarring at the lung bases. Small right renal cyst. Reading Location: [id number]
[2025-08-13 15:59] LABS: Color, Urine Straw (Yellow); Glucose, Dipstick Normal (Normal); Ketone-Dipstick Negative (Negative); Leukocyte Esterase-Dipstick Negative /ul (Negative); Nitrite-Dipstick Negative (Negative); Occult Blood-Urine Negative /ul (Negative); Protein-Dipstick 30 mg/dl (Negative); Specific Gravity, Urine 1.010 (1.002-1.030); Urine Bilirubin Dipstick Negative (Negative)
[2025-08-13 16:59] LABS: Red Blood Cells-Urine 0-5 SEEN /hpf (0-5); Squamous Epithelial Cells - UA 0-5 SEEN /hpf (5-10)
[2025-08-13 17:00] VITALS: BP 122/84; PULSE 78; RESP 14; O2SAT 98
[2025-08-13 17:12] VITALS: BP 122/84; PULSE 78; RESP 14; TEMP 36.6; O2SAT 98
== END 2025-08-13 17:13 | disposition home or self-care (01) ==
PROVIDERS: Emergency Provider Surgery; PCP Internal Medicine; Visit Provider Surgery
DX: M54.50 Low back pain, unspecified (principal); I48.91 Unspecified atrial fibrillation; K40.90 Unilateral inguinal hernia, without obstruction or gangrene, not specified as recurrent; N28.1 Cyst of kidney, acquired; I10 Essential (primary) hypertension; E78.5 Hyperlipidemia, unspecified; Z79.01 Long term (current) use of anticoagulants; Z79.899 Other long term (current) drug therapy
CPT/HCPCS: 74176; 80048; 81001; 85025; 99283; A4216; J2405